=== PATIENT | male | born 1980 | race Two or more races ===

== ENCOUNTER 2024-08-28 03:10 | Emergency (ER) | payer MEDICAID, OTHER ==
[~2024-08-28] VITALS: Ht 180.3 cm; Wt 119.0 kg
--- NOTE | 2024-08-28 04:00 | ED.PDOC ---
HPI (NEURO) HPI Comments 43-year-old male presents to ER with complaints of headache x2 days. Patient reports that he has been experiencing intermittent occipital headache x2 days. He rates his current pain a 7/10 localized to occipital scalp without radiation. Denies use of medications for current symptoms. Patient presents to ER am bulatory on arrival, alert and oriented x4, with steady gait, in no distress and does present hypertensive at 159/107, denying any history of hypertension. Denies fever, head injury, nausea/vomiting, numbness/tingling, dizziness, vision changes, confusion, chest pain or any further symptoms/complaints Chief Complaint: Headache Time Seen by MD: 03:29 Primary Care Provider: UNKNOWN Reviewed Notes: Nurses Notes, Medications, Allergies Information Source: Patient Mode of Arrival: Ambulatory Past Medical History PAST MEDICAL HISTORY: Denies Surgical History: Denies all surgeries Family History Family History: Unknown Social History Smoker: Non-Smoker Alcohol: Denies ETOH Use Drugs: Denies Drug Use Lives In: Home Constitutional: denies: chills, diaphoresis, fatigue, fever, malaise, sweats, weakness, others EENTM: denies: blurred vision, double vision, ear bleeding, ear discharge, ear drainage, ear pain, ear ringing, eye pain, eye redness, hearing loss, mouth pain, mouth swelling, nasal discharge, nose bleeding, nose congestion, nose pain, photophobia, tearing, throat pain, throat swelling, voice changes, others Respiratory: denies: cough, hemoptysis, orthopnea, SOB at rest, shortness of breath, SOB with excertion, stridor, wheezing, others Cardiovascular: denies: chest pain, dizzy spells, diaphoresis, Dyspnea on exertion, edema, irregular heart beat, left arm pain, lightheadedness, palpitations, PND, syncope, others Gastrointestinal: denies: abdomen distended, abdominal pain, blood streaked bowels, constipated, diarrhea, dysphagia, difficulty swallowing, hematemesis, melena, nausea, poor appetite, poor fluid intake, rectal bleeding, rectal pain, vomiting, others Genitourinary: denies: burning, dysuria, flank pain, frequency, hematuria, incontinence, penile discharge, penile sore, pain, testicle pain, testicle swelling, urgency, others Neurological: reports: others (As stated in HPI) Musculoskeletal: denies: back pain, gout, joint pain, joint swelling, muscle pain, muscle stiffness, neck pain, others Integumetry: denies: bruises, change in color, change in hair/nails, dryness, laceration, lesions, lumps, rash, wounds, others Allergic/Immunocompromised: denies: Difficulty Healing, Frequent Infections, Hives, Itching, others Hematologic/Lymphatic: denies: anemia, blood clots, easy bleeding, easy bruising, swollen glands, others Endocrine: denies: excessive hunger, excessive sweating, excessive thirst, excessive urination, flushing, intolerance to cold, intolerance to heat, unexplained weight gain, unexplained weight loss, others Psychiatric: denies: anxiety, bipolar disorder, depression, hopeless, panic disorder, schizophrenia, sleepless, suicidal, others Physical Exam General Appearance: No Apparent Distress, Obese HEENT: PERRL/EOMI Neck: Full Range of Motion, Non-Tender, Normal Respiratory: Chest Non-Tender, Lungs Clear, No Accessory Muscle Use, No Respiratory Distress, Normal Breath Sounds Cardiovascular: No Murmur, No Gallop, Regular Rate/Rhythm Breast Exam: Deferred Gastrointestinal: NOT DONE Genitalia: Deferred Pelvic: Deferred Rectal: Deferred Extremities: Normal capillary refill, Normal range of motion Neurologic: Alert, 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 Was a procedure done?: No Sedation Sedation?: No Differential Diagnosis (SZ) Headache: Cluster, Migraine, Subarachnoid Hemorrhage, Subdural Hemorrhage, Mass Lesion X-Ray, Labs, Meds, VS Vital Signs Date Time Temp Pulse Resp B/P (MAP) Pulse Ox O2 Delivery O2 Flow Rate FiO2 08/28/24 03:30 98.4 82 18 159/107 (538) 97 98.4 PATIENT: KLAUS URBANOACCT: [id number]: [id number] : 1980 LOC: ER ROOM / BED: / AGE / SEX: 43 / M ADM STATUS: REG ER SERVICE [id number] ORDERING PHYSICIAN: INGA ORDONEZ PROCEDURE(s): HWOCT - HEAD WITHOUT CONTRAST REASON: headache ORDER NUMBER(s): [id number], ACCESSION NUMBER(s): [id number] EXAM: CT HEAD WITHOUT CONTRAST INDICATION: Headache TECHNIQUE: CT of the head without intravenous contrast. Coronal and sagittal reformatted images are submitted. Radiation Dose : 1. Head: CT Dose: CTDI volume is 56.16 mGy. Dose-length product is 900.34 mGy*cm The dose indicators for CT are the volume Computed Tomography (CT) Dose Index (CTDIvol) and the Dose Length Product (DLP), and are measured in units of mGy a nd mGy-cm, respectively. These indicators are not patient dose, but values generated from the CT scanner acquisition factors. The report includes radiation exposure data for exposures received during this examination. All CT scans at this medical facility are performed using dose modulation techniques as appropriate to a performed exam including the following: Automated exposure c ontrol was utilized; adjustment of the MA and/or KV according to patient size; and use of iterative reconstruction technique. COMPARISON: None FINDINGS: There is no evidence of acute intracranial hemorrhage, extra-axial collection, mass effect, midline shift, herniation or hydrocephalus. The ventricles, sulci and cisterns are age appropriate. The jane-white differentiation is intact. The visualized paranasal sinuses and mastoid air cells are clear. No depressed calvarial fracture. The surrounding soft tissues are unremarkable. IMPRESSION: 1. No evidence of acute intracranial abnormality. ATED BY: HILARY HILL MD DICTATED DATE/TIME: 08/28/24427 SIGNED BY: HILARY HILL MD SIGNED DATE/TIME: 08/28/24427 CC: CT head without contrast reviewed Tylenol # three one tablet p.o. ordered Zofran 4 mg p.o. ordered Patient had improvement in symptoms and in no distress prior to discharge Advised to monitor/record blood pressure readings closely at home Advised to drink plenty of fluids Advised to follow up with PCP in 1-2 days Patient alert and oriented x4 prior to discharge. Patient verbalized understanding and agreeable with current plan of care Advised to return to ER immediately if symptoms worsen Images Reviewed?: Images reviewed and evaluated by me Time of 1ST Reevaluation: 03:54 Reevaluation 1ST: N/A Patient Education/Counseling: Diagnosis, Treatment, Prognosis, Need For Follow Up Family Education/Counseling: No Family Present Departure 1 Departure Time of Disposition: 04:32 Impression: Primary Impression: Occipital headache Disposition: HOME / SELF CARE / HOMELESS Condition: Stable e-Prescriptions Acetaminophen (Acetaminophen) 500 Mg Tab 500 MG PO Q4HPRN, #30 TAB 0 Refills Prov: INGA ORDONEZ 08/28/24 Discharged With: Friend Critical Care Note Critical Care Time?: No Stability Stability form required: No Heart Score Heart Score: Heart Score Response (Comments) Value History N/A 0 EKG N/A 0 Age N/A 0 Risk Factors N/A 0 Troponin N/A 0 Total 0 INGA ORDONEZ August 28, 2024 04:00
--- NOTE | 2024-08-28 04:30 | DVH ---
EXAM: CT HEAD WITHOUT CONTRAST INDICATION: Headache TECHNIQUE: CT of the head without intravenous contrast. Coronal and sagittal reformatted images are s ubmitted. Radiation Dose : 1. Head: CT Dose: CTDI volume is 56.16 mGy. Dose-length product is 900.34 mGy*cm The dose indicators for CT are the volume Computed Tomography (CT) Dose Index (CTDIvol) and the Dose Length Product (DLP), and are measured in units of mGy and mGy-cm, respectively. These indicators are not patient dose, but values generated from the CT scanner acquisition factors. The report includes radiation exposure data for exposures received during this examination. All CT scans at this medical facility are performed using dose modulation techniques as appropriate to a performed exam including the following: Automated exposure control was utilized; adjustment of the MA and/or KV according to patient size; and use of iterative reconstruction technique. COMPARISON: None FINDINGS: There is no evidence of acute intracranial hemorrhage, extra-axial collection, mass effect, midline s hift, herniation or hydrocephalus. The ventricles, sulci and cisterns are age appropriate. The jane-white differentiation is intact. The visualized paranasal sinuses and mastoid air cells are clear. No depressed calvarial fracture. The surrounding soft tissues are unremarkable. IMPRESSION: 1. No evidence of acute intracranial abnormality.
[2024-08-28] MEDS ORDERED: ACET500T58 PO (04:34)
[2024-08-28 05:50] VITALS: BP 142/91; TEMP 98.8
[2024-08-28 05:51] VITALS: PULSE 69; RESP 16; O2SAT 97
[2024-08-28] MEDS: ONDANSETRON ODT 4 MG TAB PO ONE (05:56)
[2024-08-28] MEDS: ACETAMINOPHEN/CODEINE#3 (300/30mg) TAB PO ONE (05:56)
== END 2024-08-28 06:01 | disposition home or self-care (01) ==
LOC: ER 03:10
DX: R51.9 Headache, unspecified (principal)
CPT/HCPCS: 70450; 99284; Q0162